=== PATIENT | female | born 1960 | race Caucasian/White ===

== ENCOUNTER 2018-12-03 05:07 | Inpatient (IN) ==
--- NOTE | 2018-11-12 13:42 | History & Physical Report ---
Date of Service November 12, 2018 Date of Surgery: 12-03-18 Assessment & Plan (1) Painful total knee replacement, left: discussed further care, Drea is approximately 12 years s/p left TKA, updated xrays showing no acute findings but showing some poly wear, bone scan from 2 years ago showing no loosening, discussed poly exchange and medial retinaculum repair, risks and benefits discussed in detail, she would like to proceed with left knee arthrotomy, medial retinaculum repair and poly exchange at [facility]. she would like to use HHPT upon discharge. History of Present Illness Chief Complaint: left knee pain Primary Care Provider: Martina Beck DO Ms Jefferson is a 58 year old female who complains of left knee pain, presents for pre-op evaluation prior to left knee arthrotomy, poly exchange and medial retinacular repair at [facility] on 12-03-18. She presents with pain on the left side. She states that the symptoms have been acute non-traumatic and has been present for several months. The symptoms occur constantly with intermittent worsening. Currently the patient states that the symptoms are moderate. The pain is described as aching and sharp. She rates her current pain as 4/10 and worst 8/10. The symptoms are aggravated by ascending stairs, daily activities, descending stairs, weight bearing and walking. Drea states that the symptoms are not relieved by NSAIDs. In addition to left knee pain the patient is also experiencing decreased mobility, joint pain and night pain. New Xrays obtained did not show any acute findings or loosening of implant. Prior NSAIDs include Aleve. she had previously undergone left TKA about 12 years ago. Allergies Allergy/AdvReac Type Severity Reaction Status Date / Time aspirin AdvReac Intermediate STOMACH Verified 11/03/18 08:13 IRRITATION acetaminophen [From Percocet] AdvReac Unknown LOSS OF Verified 11/03/18 08:13 APPETITE AND CRIES Home Medications Home Medications Medication Instructions Recorded Confirmed Type ascorbic acid (vitamin C) [Vitamin 500 mg PO DAILY 11/03/18 11/03/18 History C] cholecalciferol (vitamin D3) 500 unit PO DAILY 11/03/18 11/03/18 History [Vitamin D3] liothyronine 25 mcg PO QAM 11/03/18 11/03/18 History Past Med/Surg History Medical History Asthma "ACTIVITY INDUCED" Hiatal hernia History of high cholesterol History of osteoarthritis Hypothyroid Nausea and vomiting after administration of anesthetic agent Skipped heart beats PRIOR TO RTKA, SURGERY CX, DR TRINIDAD/NON STRESS - CLEARED FOR SURGERY Surgical History History of bilateral breast reduction surgery History of colonoscopy History of hysterectomy History of left knee surgery MULTIPLE (TOTAL KNEE SURGERIES BETWEEN RIGHT AND LEFT = 19) History of right knee surgery MULTIPLE History of total left knee replacement History of total right knee replacement Family History Father History of multiple myeloma Mother Hx of acute lymphoid leukemia Social History Preferred Language: Zimbabwean Communication Ability: Effective Server Required: No Beliefs That Will Affect Care: None Current Living Situation: Other Current Living Situation Comment: AND ADOPTED 5 YR OLD BOY Other Information That Helps Us Care for You: No Feels Safe at Home: Yes Smoking Status: Never smoker Hx Alcohol Use: No Hx Substance Use: No Review of Systems All systems reviewed & are unremarkable except as noted in HPI & below Constitutional: no fever, no chills and no sweats Respiratory: no cough and no dyspnea Cardiovascular: no chest pain, no dyspnea and no orthopnea Gastrointestinal: no abdominal pain, no nausea and no vomiting Musculoskeletal: as per Subjective / HPI Physical Exam Vital Signs (Past 24 Hours): Ht: 5ft 4 in Wt: 72.58 kg BP: 120/84 Pulse: 72 Constitutional: WD/WN, vitals as above no acute distress Respiratory: normal respiratory effort, lungs clear to auscultation Cardiovascular: RRR, no murmur, no edema Gastrointestinal (Abdomen): normal bowel sounds, soft, nontender, no hepatosplenomegaly Musculoskeletal: Left Knee Exam Ambulates with a limp, overall neutral lignment, there is no atrophy warmth or ecchymosis noted, mild effusion, maximum tenderness medial retinaculum. negative patellar Apprehension , no crepitation with motion, valgus stress Negative, Varus stress Negative, no Extensor lag, Pain with Active range of motion, also passive painful ROM, Range of motion 0/3/115. No pain with active/passive ROM of ankle. Lower Extremity Strength normal. Lower Extremity Neuro-vascular is normal Results & Data Diagnostic Findings left knee xray showing s/p left total knee replacement in anatomical alignment, poly wear noted from xrays several years ago, no acute findings, no loosening of the prosthesis, no fracture or loose bodies noted. Bone Scan from 2 years ago showing no signs of loosening or infection.
--- NOTE | 2018-11-14 12:37 | PAT Medication Instructions ---
Medication Instructions Date of Service November 14, 2018 Home Medications ascorbic acid (vitamin C) [Vitamin 500 mg PO DAILY cholecalciferol (vitamin D3) 500 unit PO DAILY liothyronine 25 mcg PO QAM DO NOT take the morning of surgery ascorbic acid (vitamin C) [Vitamin 500 mg PO DAILY cholecalciferol (vitamin D3) 500 unit PO DAILY Take morning of surgery With a small sip of water, OTHERWISE NOTHING TO EAT OR DRINK AFTER MIDNIGHT: liothyronine 25 mcg PO QAM Other Notes If you have any questions please call us at [phone] or [phone] or [phone] or [phone]
--- NOTE | 2018-11-14 14:08 | Anesthesiology Consultation ---
Date of Service November 14, 2018 Assessment & Plan (1) Encounter for pre-operative examination: Chart Review Chart Review: Acceptable Risk for Surgery (pending surgeon-ordered PCP preop evaluation scheduled 11/21 (Kiran)) and Patient seen in Pre Admission Testing Teaching & Discussion Pre-Anesthesia Teaching/Discussion Notes: Instructed NPO after midnight before surgery,except medications with 15 cc of water. Medication instructions pro vided according to the PAT guidelines. History Surgery Operation Date: 12/03/18 07:00 Proposed Procedures p Left Knee Polyethylene Exchange with Medial Retinacular Repair - Salbador Moreland DO Height/Weight Height: 5 ft 4 in Weight: 78.5 kg Allergies Allergy/AdvReac Type Severity Reaction Status Date / Time aspirin AdvReac Intermediate STOMACH Verified 11/03/18 08:13 IRRITATION acetaminophen [From Percocet] AdvReac Unknown LOSS OF Verified 11/03/18 08:13 APPETITE AND CRIES Medications Home Medications Medication Instructions Recorded Confirmed Last Taken ascorbic acid (vitamin C) [Vitamin 500 mg PO DAILY 11/03/18 11/03/18 Unknown C] cholecalciferol (vitamin D3) 500 unit PO DAILY 11/03/18 11/03/18 Unknown [Vitamin D3] liothyronine 25 mcg PO QAM 11/03/18 11/03/18 11/03/18 Past Medical History Medical History Asthma STABLE Hiatal hernia History of high cholesterol History of osteoarthritis Hypothyroid Past Family History Family History Father History of multiple myeloma Mother Hx of acute lymphoid leukemia Past Surgical History Surgical History History of bilateral breast reduction surgery History of colonoscopy History of hysterectomy History of left knee surgery MULTIPLE B/L History of right knee surgery MULTIPLE History of total left knee replacement History of total right knee replacement Past Anesthesia History No Hx of Anesthesia Complications (EXCEPT POST-OP NAUSEA) and No Family Hx of Anesthesia Complications History of PONV Yes (+ NAUSEA) Motion Sickness Screening History of Motion Sickness: No Social History Smoking Status: Never smoker Do You Dip or Chew Tobacco: No Hx Alcohol Use: No Hx Substance Use: No substance use type: does not use Exercise / Class Metabolic Activity III < 4 Walking/Shop/Light housework Review of Systems Patient denies chest pain, shortness of breath, cough, wheezing, palpitations. Physical Exam Vital Signs VITALS BP 123/76 P 70 TEMP 98.1 SP02 93%RA RESP 16 PHYSICAL Full neck and c-spine range of motion. Full TMJ range of motion. TMD 2.5 finger breaths Mallampati Score 2 Dentition: full dentures on upper Lungs: clear throughout to auscultation Cardiac: regular rate and rhythm, no murmurs noted Spine: normal Carotid arteries: negative bruit Extremities: no edema Testing Electrocardiogram Date: 11/14/18 NSR at 61bpm. NS ST/TWA. Chest X-Ray Date: 11/14/18 Findings: + NAD the heart remains the upper limits of normal in size. There is mild aortic tortuosity/ectasia. Stress Test Date: 11/07/12 Type: DSE DSE "normal" without inducible ischemia. Mild equivocal EKG noted however in light of appropriate augmentation of the LV, "it is unlikely that the EKG is advertising representative of ischemia." LVEF 55-59%. Grade I DD. No significant valvular disease. 103% MPHR. Laboratory Results 11/14/18 14:15 11/14/18 14:15 Blood Type O Negative 11/14/18 14:15 Antibody Screen NEGATIVE 11/14/18 14:15 PT 10.2 Seconds (9.0-12.0) 11/14/18 14:15 INR 1.0 (0.9-1.1) 11/14/18 14:15 APTT 24.8 Seconds (21.0-31.0) 11/14/18 14:15 Hemoglobin A1c 6.0 % (4.5-5.6) H 11/14/18 14:15 Urine Color Yellow 11/14/18 14:15 Urine Appearance Clear (Clear) 11/14/18 14:15 Urine pH 5.0 (4.5-7.5) 11/14/18 14:15 Ur Specific Howell 1.029 (1.000-1.030) 11/14/18 14:15 Urine Protein Negative (Negative) 11/14/18 14:15 Urine Glucose (UA) Negative (Negative) 11/14/18 14:15 Urine Ketones Negative (Negative) 11/14/18 14:15 Urine Nitrite Negative (Negative) 11/14/18 14:15 Ur Leukocyte Esterase Negative (Negative) 11/14/18 14:15 Urine WBC (Auto) 1-5 /hpf (0-5) 11/14/18 14:15 Urine RBC (Auto) 0-4 /hpf (0-4) 11/14/18 14:15 U Hyaline Cast (Auto) 1-5 /lpf (0-5) 11/14/18 14:15 U Epithel Cells (Auto) >30 /lpf (0-5) H 11/14/18 14:15 Urine Bacteria (Auto) 1+ (Negative) H 11/14/18 14:15 11/14/18 14:15 Urine Culture - Final Urine,Clean Catch Klebsiella pneumoniae Gardnerella-like bacilli Surgeon made aware of abnormal urine culture.
--- NOTE | 2018-11-14 14:52 | XRay Report ---
XR chest Pre-admission PA/Lat CLINICAL HISTORY: Preoperative chest COMPARISON STUDY: September 2012 FINDINGS: The heart remains the upper limits of normal in size. There is mild aortic tortuosity/ectas ia. There is no failure. There is no focal pulmonary consolidation. There are no pleural effusions.[ IMPRESSION: No active disease in the chest. Electronically signed by: Cam Aj M.D. 11/14/2018 2:50 PM
[2018-11-14 14:54] LABS: Basophils # (auto) 0.01 K/uL (0-0.2); Basophils % (auto) 0.1 %; Hematocrit (blood only) 39.5 % (37-47); Hemoglobin 12.8 g/dL (12.0-16.0); Immature Granulocytes # (auto) 0.23 K/uL (0.00-0.02); Immature Granulocytes % (auto) 2.2 %; Lymphocytes # (auto) 1.61 K/uL (1.2-3.4); Lymphocytes % (auto) 15.6 %; Mean Corpuscular Hgb Conc 32.4 g/dL (32-36); Mean Corpuscular Volume 91.2 fL (80-100); Mean Platelet Volume 9.3 fL (7.4-10.4); Monocytes # (auto) 0.51 K/uL (0.11-0.59); Monocytes % (auto) 4.9 %; Neutrophils # (auto) 7.95 K/uL (1.4-6.5); Neutrophils % (auto) 77.2 %; Platelet Count 324 K/uL (130-400); RDW Coefficient of Variation 13.2 % (11.5-14.5); RDW Standard Deviation 43.9 fL (36.4-46.3); Red Blood Count 4.33 M/uL (4.2-5.4); White Blood Count 10.31 K/uL (4.8-10.8)
[2018-11-14 15:00] LABS: Appearance Urine Clear (Clear); Bacteria Urine Automated 1+ (Negative); Bilirubin Urine Negative (Negative); Blood Urine Trace (Negative); Color Urine Yellow; Epithelial Cell Urine Auto >30 /lpf (0-5); Glucose Urine UA Negative (Negative); Ketones Urine Negative (Negative); Leukocyte Esterase Urine Negative (Negative); Nitrite Urine Negative (Negative); Protein Urine Negative (Negative); RBC Urine Automated 0-4 /hpf (0-4); Specific Gravity Urine 1.029 (1.000-1.030); Urobilinogen Urine Negative (Negative)
[2018-11-14 15:08] LABS: Partial Thromboplastin Ratio 0.9; Partial Thromboplastin Time 24.8 Seconds (21.0-31.0); Prothrombin Time 10.2 Seconds (9.0-12.0)
[2018-11-14 15:56] LABS: Albumin Level 3.3 gm/dl (3.4-5.0); BUN Creatinine Ratio 23.7 (10-20); Calcium 9.1 mg/dl (8.5-10.1); Est GFR (African American) 82.2; Est GFR (Non-African American) 70.9; Potassium 3.5 mmol/L (3.5-5.1)
[2018-11-15 06:26] LABS: Estimated Average Glucose 126 mg/dl
--- OUTSIDE RECORDS SUMMARY | 2018-12-03 05:10 | External Medical Summary | Continuity of Care Document ---
:1960 Author Name Naye Arroyo Address Unavailable Unavailable , Care Team Providers Name Role Phone Juan Carlos GUERRIER M.D., P. Unavailable [email or web address] PCP, UNKNOWN Unavailable Unavailable Problems Active medical history not documented Allergies and Adverse Reactions Allergy history not documented Medications Medications not documented Procedures Procedures not documented Immunizations Immunizations not documented Plan of Treatment Planned Observations Planned Goals not documented Results No Known Results Results not documented Encounters Appointment; Ale Rangel III, M.D. 10-Sep-2013 13:30 Encounter Diagnosis: Problem not documented
[2018-12-03] MEDS ORDERED: CEFAZOLIN 1000MG 1,000 MG/7.5 ML SYR IV SCH (06:00)
[2018-12-03] MEDS ORDERED: ACETAMINOPHEN 500 MG TAB PO SCH (06:00)
[2018-12-03] MEDS ORDERED: CeleBREX 200 MG CAP PO SCH (06:00)
[2018-12-03] MEDS ORDERED: dexAMETHasone 4 MG TAB PO SCH (06:00)
[2018-12-03] MEDS ORDERED: ROPIVACAINE 0.5% HCL/PF 150 MG, BUPIVACAINE 0.5% MPF 30 ML, EPINEPHrine 30MG/30ML (OR U... INFIL SCH (06:00)
[2018-12-03] MEDS ORDERED: GABAPENTIN 300 MG x 2 PO SCH (06:00)
[2018-12-03] MEDS ORDERED: METOCLOPRAMIDE HCL 10 MG TABLET PO SCH (06:00)
[2018-12-03] MEDS ORDERED: LR 500ML BOLUS, THEN 15ML/HR IV SCH (06:00)
[2018-12-03] MEDS ORDERED: TRANEXAMIC ACID 1,000 MG **IV Pre-op IV SCH (06:00)
[2018-12-03] MEDS ORDERED: ROPIVACAINE 0.5% 5 MG/ML 30 ML VIAL ONE (06:23)
[2018-12-03] MEDS ORDERED: BUPIVACAINE 0.5 % 5 MG/1 ML PF 10ML VIAL ONE (06:23)
[2018-12-03] MEDS ORDERED: MIDAZOLAM HCL 1 MG/ML 2ML VIAL ONE (06:28)
[2018-12-03] MEDS ORDERED: fentaNYL citrate 100 MCG/2 ML VIAL ONE (06:28)
[2018-12-03] MEDS ORDERED: TRANEXAMIC ACID 1,000 MG **IV Intra-op IV SCH (06:30)
--- NOTE | 2018-12-03 07:06 | History & Physical Bridge Note ---
Date of Service December 03, 2018 History & Physical Bridge Note I have examined the patient, reviewed the History & Physical and in the interval since the performance of the History & Physical I have noted the following changes of clinical significance: no changes noted
[2018-12-03] MEDS ORDERED: ORTHO JOINT ANESTHETIC ONE (07:21)
[2018-12-03] MEDS ORDERED: BACITRACIN INJ 50,000 UNIT VIAL ONE (07:21)
[2018-12-03] MEDS ORDERED: POVIDONE-IODINE OP SOLN 30 ML BTL ONE (07:21)
[2018-12-03] MEDS ORDERED: PHENYLEPHRINE 100MCG/ML 5ML SYR IV PRN (07:28)
[2018-12-03] MEDS ORDERED: HYDROmorphone INJ 1 MG/ML SYRINGE IV PRN (07:28)
[2018-12-03] MEDS ORDERED: ePHEDrine sulfate 50 MG/ML AMP IV PRN (07:28)
[2018-12-03] MEDS ORDERED: ATROPINE SULFATE 0.1 MG/ML 10ML SYR IV PRN (07:28)
[2018-12-03] MEDS ORDERED: ONDANSETRON INJ 2 MG/ML 2 ML VIAL IV PRN ×2 (07:28→09:59)
--- NOTE | 2018-12-03 08:28 | Operative Report ---
Post Operative Report Pre & Post Diagnosis Operation Date: 12/03/18 07:30 <No data on this case meets the specified criteria> Left knee ligamentous laxity status post total knee arthroplasty Left knee ligamentous laxity status post total knee arthroplasty Procedure Poly-change left total knee arthroplasty upsized to an 11 mm x 3 polyethylene triathlon tibial bearing insert Operation Date: 12/03/18 07:30 <No data on this case meets the specified criteria> Surgeon Salbador Moreland DO Bacteriologist Soil Iam JORDAN Estimated Blood Loss 5 Findings Consistent with Post-Op Diagnosis Patient presents with complaints of pain and instability of her left knee from 11 years prior had undergone total knee arthroplasty was doing well until the last year had a couple falls and presents with ligamentous laxity both medial lateral and poly-wear presents for ligamentous exam as well as a poly-change of size. Patient failed attempts at the conservative management including physical therapy anti-inflammatories relative rest bracing Specimens Removed probably Drains None Complications none Disposition Accompanied Patient To Recovery: No Disposition: Recovery Room Indications Patient presents with ongoing planes of pain and instability about her left knee after having undergone total knee arthroplasty 11 years prior she presents with 2 months laxity with medial lateral collateral ligaments for having had multiple falls who presents with the above findings noted no response to bracing physical therapy anti-inflammatories relative rest activity modification presents for poly-change Description of Procedure After proper prepping draping the left lower extremity incision made through the medial anterior incision medial parapatellar incision was made the sections carried down to the region of the implant there is no evidence of infection or synovitis noted of the patellar tracking was noted to be excellent subsequently the medial lateral ligamentous complexes were noted to have laxity the poly-was removed it was trialed with an 11 x 3 triathlon next 3 tibial bearing insert gave excellent stability throughout full range of motion including flexion- extension and mid flexion subsequently was irrigated with copious muscle sterile saline solution femoral component tibial component to be well cemented well adhered well fixed no loosening was noted patellar component was evaluated no loosening was noted subsequently the tibial poly-was changed the wound was irrigated with copious muscle sterile saline solution the medial retinacular incision was repaired with one #1 Vicryl subcu was closed with 2-0 Vicryl skin was closed with skin clips sterile compressive dressings placed patient was taken recovery in stable condition Iam Brunermer PA was necessary for the case was necessary for prepping draping retraction wound closure of the fascia subcu and skin was necessary for the case I attest to the content of the Intraoperative Record and any orders documented therein. Any exceptions are noted below.
--- NOTE | 2018-12-03 09:33 | Anesthesiology Progress Note ---
Date of Service December 03, 2018 Anesthesia Post Procedure Vital Signs Vital Signs: Temp Pulse Resp BP Pulse Ox 12/03/18 09:03 36.7 C 66 18 111/62 97 12/03/18 05:37 36.9 C 64 18 137/79 98 Pain Intensity Left Knee: Pain Intensity: 0 Transfer of Care Handoff Completed per policy Notes Mental Status: alert / awake / arousable Patient Amnestic to Procedure: Yes Nausea / Vomiting: adequately controlled Pain: adequately controlled Airway Patency, RR, SpO2: stable & adequate BP & HR: stable & adequate Hydration State: stable & adequate Neuraxial Anesthesia: was administered and sensory block is resolving Anesthetic Complications: no major complications apparent
--- NOTE | 2018-12-03 09:51 | XRay Report ---
LEFT KNEE 2 VIEWS History: Left total knee arthroplasty. Degenerative arthritis. Postop. FINDINGS: The patient is status post a left total knee arthroplasty. The hardware is intact. No fract ure or dislocation. Skin joe are in place. IMPRESSION: Left total knee arthroplasty. No evidence for hardware complication. Electronically signed by: Juan Coe M.D. 12/03/2018 9:49 AM
[2018-12-03] MEDS ORDERED: MAGNESIUM HYDROXIDE SUSP 30 ML UDC PO PRN (09:59)
[2018-12-03] MEDS ORDERED: NALOXONE HCL 0.4 MG/1 ML VIAL/CARP IV PRN (09:59)
[2018-12-03] MEDS ORDERED: BISACODYL 10 MG SUPP PR PRN (09:59)
[2018-12-03] MEDS ORDERED: HYDROmorphone INJ 0.5 MG/0.5 ML SYR IV PRN (09:59)
[2018-12-03] MEDS: SODIUM CHLORIDE 0.9% 1000ML 1,000 ML IV SCH ×2 (10:38→21:24)
[2018-12-03] MEDS: CEFAZOLIN 1000MG 1,000 MG/7.5 ML SYR IV SCH ×2 (17:05→23:07)
[2018-12-03] MEDS: OXYCODONE HCL IR 5 MG TAB (IMMEDIATE RELEASE) PO PRN (18:50)
[2018-12-03] MEDS ORDERED: SENNA 8.6 MG TAB PO SCH (21:00)
[2018-12-03] MEDS: DOCUSATE SODIUM 100 MG CAP PO SCH (21:25)
[2018-12-04] MEDS: SODIUM CHLORIDE 0.9% 1000ML 1,000 ML IV SCH (04:58)
[2018-12-04] MEDS: OXYCODONE HCL IR 5 MG TAB (IMMEDIATE RELEASE) PO PRN (05:02)
[2018-12-04] MEDS: DOCUSATE SODIUM 100 MG CAP PO SCH (07:00)
--- NOTE | 2018-12-04 07:33 | Orthopedic Progress Note ---
Date of Service December 04, 2018 Assessment & Plan (1) Polyethylene wear of left knee prosthesis: POD #1 s/p Poly-change left total knee arthroplasty upsized to an 11 mm x 3 polyethylene triathlon tibial bearing insert pt/ot dvt proph with NARAYAN/SCD/ASA plan for d/c home with HHPT after PT today Subjective POD #1 s/p Poly-change left total knee arthroplasty upsized to an 11 mm x 3 polyethylene triathlon tibial bearing insert denies fever/chills/sweats denies CP/SOB pain well controlled Physical Exam Physical Exam: Vital Signs Temp 36.6 C 12/04/18 03:05 Pulse 70 12/04/18 03:05 Resp 14 12/04/18 03:05 BP 129/66 12/04/18 03:05 Pulse Ox 96 12/04/18 03:05 Intake & Output 12/03/18 12/04/18 12/04/18 18:59 06:59 18:59 Intake Total 1860 / 4116.667 2256.667 / 4116.66 7 Output Total 505 / 955 450 / 955 Balance 1355 / 3161.667 1806.667 / 3161.66 7 Weight 76.75 kg Intake: IV 1020 / 2776.667 1756.667 / 2776.66 7 Lr 1,000 ml @ 15 mls/hr IV . 800 / 800 Q24H SUNG Rx#:[id number] Nss 1000ML 1,0 00 ml @ 100 mls/ 1756.667 / 1756.66 7 hr IV .Q10H SC H Rx#:[id number] Cyklokapron 1, 000 mg In Sodium 220 / 220 Chloride 100 m l @ 660 mls/hr IV 0630 SUNG Rx#:[id number] IV Perioperative 600 / 600 Oral 240 / 740 500 / 740 Output: Urine 500 / 950 450 / 950 Estimated Blood Loss 5 / 5 Other: # Unmeasured Voi ds 1 Constitutional: WD/WN, vitals as above + not well nourished and no acute distress Musculoskeletal: left knee: NVDI, calf SNT, negative peri sign. DP palpable, able to wiggle toes/ankle movement without difficulty. her dressing is clean and dry Vital Signs Temp 36.6 C 12/04/18 03:05 Pulse 70 12/04/18 03:05 Resp 14 12/04/18 03:05 BP 129/66 12/04/18 03:05 Pulse Ox 96 12/04/18 03:05 Intake & Output 12/03/18 12/04/18 12/04/18 18:59 06:59 18:59 Intake Total 1860 / 4116.667 2256.667 / 4116.66 7 Output Total 505 / 955 450 / 955 Balance 1355 / 3161.667 1806.667 / 3161.66 7 Weight 76.75 kg Intake: IV 1020 / 2776.667 1756.667 / 2776.66 7 Lr 1,000 ml @ 15 mls/hr IV . 800 / 800 Q24H SUNG Rx#:[id number] Nss 1000ML 1,0 00 ml @ 100 mls/ 1756.667 / 1756.66 7 hr IV .Q10H SC H Rx#:[id number] Cyklokapron 1, 000 mg In Sodium 220 / 220 Chloride 100 m l @ 660 mls/hr IV 0630 SUNG Rx#:[id number] IV Perioperative 600 / 600 Oral 240 / 740 500 / 740 Output: Urine 500 / 950 450 / 950 Estimated Blood Loss 5 / 5 Other: # Unmeasured Voi ds 1 Results & Data Vital Signs (Past 12 Hours) Vital Signs Temp Pulse Resp BP Pulse Ox 12/04/18 03:05 36.6 C 70 14 129/66 96 12/03/18 23:27 36.6 C 70 14 114/66 98 Laboratory Results labs pending Diagnostic Findings LEFT KNEE 2 VIEWS History: Left total knee arthroplasty. Degenerative arthritis. Postop. FINDINGS: The patient is status post a left total knee arthroplasty. The hardware is intact. No fracture or dislocation. Skin joe are in place. IMPRESSION: Left total knee arthroplasty. No evidence for hardware complication.
[2018-12-04 08:13] LABS: Hemoglobin 11.2 g/dL (12.0-16.0); Mean Corpuscular Hgb Conc 32.9 g/dL (32-36); Mean Corpuscular Volume 90.2 fL (80-100); Mean Platelet Volume 9.2 fL (7.4-10.4); Platelet Count 275 K/uL (130-400); RDW Standard Deviation 43.2 fL (36.4-46.3); Red Blood Count 3.77 M/uL (4.2-5.4); White Blood Count 12.58 K/uL (4.8-10.8)
[2018-12-04 08:48] LABS: BUN Creatinine Ratio 23.4 (10-20); Calcium 8.4 mg/dl (8.5-10.1); Creatinine Clr Calc Pharmacy 89.3 ml/min; Est GFR (Non-African American) 95.7; Potassium 3.9 mmol/L (3.5-5.1)
[2018-12-04] MEDS ORDERED: LIOTHYRONINE SODIUM 25 MCG TAB PO SCH (09:00)
[2018-12-04] MEDS ORDERED: RIVAROXABAN 10 MG TABLET PO SCH (09:00)
[2018-12-04] MEDS ORDERED: CHOLECALCIFEROL 1,000 UNITS TAB PO SCH (09:00)
[2018-12-04] MEDS ORDERED: MULTIVITAMIN TAB PO SCH (09:00)
--- NOTE | 2018-12-10 01:41 | Discharge Summary ---
DISCHARGE DIAGNOSIS: Left knee ligamentous laxity, status post total knee arthroplasty. SECONDARY DIAGNOSES: Asthma, hiatal hernia, hypercholesterolemia, osteoarthritis, hypothyroidism, history of skipped heartbeats in the past, nausea and vomiting post-anesthetic agents. CONSULTS: None. COMPLICATIONS: None. PROCEDURES: Polyethylene bearing change, left knee, by Dr. Moreland on 12/03/2018. BRIEF HISTORY: As dictated in history and physical. HOSPITAL SUMMARY: The patient was admitted on the above date and had the above surgery performed, which she tolerated well. On her first postoperative day, she denies fever or chills. No shortness of breath or chest pain and pain was well controlled. Vital signs were stable. She was afebrile. Neurovascular intact. Calves were soft, nontender. Dressings were clean, dry and intact. Toes were mobile. She did start on physical therapy protocol and continued on DVT prophylaxis and pain management and was progressing well with her PT, remaining stable and it was felt that she could be discharged to home. DISCHARGE INSTRUCTIONS: The patient was discharged home on 12/04/2018. DIET: Regular. ACTIVITY: Weightbearing as tolerated on left lower extremity with walker. Follow TK instruction sheets and special care instructions as noted. MEDICATIONS: Cefadroxil 500 mg p.o. b.i.d., Colace 100 mg p.o. b.i.d., oxycodone 5-10 mg p.o. q. 6 hours p.r.n., Xarelto 10 mg p.o. daily. Resume home meds as listed and follow up with Dr. Moreland in 2 weeks from the day of surgery. The patient to call for appointment if one has not made you. SANDRA
== END 2018-12-04 11:31 | disposition home or self-care (01) | DRG 489 ==
LOC: ASU 05:07 → 3E 09:11

== ENCOUNTER 2022-10-17 08:47 | Observation (INO) ==
--- NOTE | 2022-09-25 08:54 | PAT Medication Instructions ---
Medication Instructions Date of Service September 25, 2022 Home Medications cholecalciferol (vitamin D3) 25 mcg (1,000 unit) tablet (Vitamin D3) 500 unit PO QAM liothyronine 25 mcg tablet 25 mcg PO QAM DO NOT take the morning of surgery cholecalciferol (vitamin D3) 25 mcg (1,000 unit) tablet (Vitamin D3) 500 unit PO QAM Take morning of surgery With a small sip of water, OTHERWISE NOTHING TO EAT OR DRINK AFTER MIDNIGHT: liothyronine 25 mcg tablet 25 mcg PO QAM Other Notes If you have any questions please call us at [phone] or [phone] or [phone] or [phone]
--- NOTE | 2022-09-27 10:18 | Anesthesiology Consultation ---
Date of Service September 27, 2022 Assessment & Plan (1) Encounter for pre-operative examination: - COVID screening: Per assessment on 09/27: No known COVID-19 positive contacts or current COVID-19 related symptoms. Travel screen negative. Patient vaccinated. At surgeon discretion if preop Covid testing being done. - S/P Left knee poly exchange with medial retinacular repair (12/03/18): SAB + PNB at [facility]. No issues noted per post-op anesthesia progress note. - Outpatient joint assessment: Pt currently scheduled for inpatient pathway. Knee revisions typically not done through outpatient joint pathway so patient not appropriate for outpatient joint pathway unless surgeon specifically feels this case can be done through outpatient joint pathway (if surgeon feels this case in particular is appropriate for outpatient joint pathway, then patient would be acceptable). Chart Review Chart Review: Acceptable Risk for Surgery and Patient seen in Pre Admission Testing Teaching & Discussion Pre-Anesthesia Teaching/Discussion Notes: Instructed NPO after midnight before surgery,except medications with 15 cc of water. Medication instructions provided according to the PAT guidelines. History Surgery Operation Date: 10/17/22 09:50 Proposed Procedures p Right Knee Poly Exchange - Salbador Moreland DO Height/Weight Height: 5 ft 3 in Weight: 74.7 kg Allergies Allergy/AdvReac Type Severity Reaction Status Date / Time aspirin AdvReac Intermediate Stomach Verified 09/25/22 15:37 irritation acetaminophen [From Percocet] AdvReac Unknown Loss of Verified 09/25/22 15:37 appetite, crying Medications Home Medications Medication Instructions Recorded Confirmed Last Taken cholecalciferol (vitamin D3) 25 500 unit PO QAM 11/03/18 09/24/22 11/26/18 mcg (1,000 unit) tablet (Vitamin D3) liothyronine 25 mcg tablet 25 mcg PO QAM 11/03/18 09/24/22 12/02/18 07:00 Past Medical History Medical History Asthma Stable Hiatal hernia History of high cholesterol History of osteoarthritis Hypothyroid Leg length discrepancy Right side shorted- wears lift Exercise / Class Metabolic Activity II 4-5 Yardwork/Stairs/Walk up hill Past Family History Family History Father History of multiple myeloma Mother Hx of acute lymphoid leukemia Other No family history of adverse response to anesthesia Past Surgical History Surgical History History of arthroscopy of left knee multiple History of arthroscopy of right knee multiple History of bilateral breast reduction surgery History of colonoscopy History of hip surgery Right History of hysterectomy History of revision of total knee arthroplasty Left knee poly exchange with medial retinacular repair (12/03/18): SAB + PNB at [facility]. No issues noted per post-op anesthesia progress note. History of total left knee replacement History of total right knee replacement PONV (postoperative nausea and vomiting) Past Anesthesia History No Hx of Anesthesia Complications (except PONV) and No Family Hx of Anesthesia Complications History of PONV No Hx of Motion Sickness and History of PONV Social History Smoking Status: Never smoker Do You Dip or Chew Tobacco: No Hx Alcohol Use: No Hx Substance Use: No substance use type: does not use Review of Systems Patient denies chest pain, shortness of breath, dyspnea on exertion, fever, chills, cough, wheezing, palpitations. Physical Exam Vital Signs VITALS BP 171/94 P 65 TEMP 138/85 SP02 98%RA RESP 16 PHYSICAL Full cervical extension range of motion. Full TMJ range of motion. TMD 3 finger breaths Mallampati Score 2 Dentition: upper full denture Lungs: clear throughout to auscultation Cardiac: regular rate and rhythm, no murmurs noted Spine: normal Carotid arteries: negative bruit Extremities: no edema Lab Results Anesthesia Preop Results Results Anesthesia Widget: WBC 5.58 K/ul (4.8-10.8) 09/27/22 Hgb 13.9 g/dl (12.0-16.0) 09/27/22 Hct 42.2 % (37.0-47.0) 09/27/22 Plt 329 K/uL (130-400) 09/27/22 Na 139 mmol/L (136-145) 09/27/22 K 4.1 mmol/L (3.5-5.1) 09/27/22 Cl 105 mmol/L (98-107) 09/27/22 CO2 30 mmol/L (21-32) 09/27/22 BUN 15 mg/dl (6-23) 09/27/22 Creat 0.77 mg/dl (0.6-1.2) 09/27/22 Glucose Level 90 mg/dl (70-99(Fasting)) 09/27/22 PT 10.3 Seconds (9.0-12.0) 09/27/22 PTT 28.4 Seconds (21.0-31.0) 09/27/22 INR 1.0 (0.9-1.1) 09/27/22 HA1c 5.7 % (4.5-5.6) H 09/27/22 Urine Color Yellow 09/27/22 Urine Appearance Clear (Clear) 09/27/22 Urine pH 5.5 (4.5-7.5) 09/27/22 Urine Specific [place] 1.012 (1.000-1.030) 09/27/22 Urine Protein Negative (Negative) 09/27/22 Urine Glucose (UA) Negative (Negative) 09/27/22 Urine Ketones Negative (Negative) 09/27/22 Urine Blood Trace (Negative) H 09/27/22 Urine Nitrite Negative (Negative) 09/27/22 Urine Bilirubin Negative (Negative) 09/27/22 Urine Urobilinogen Negative (Negative) 09/27/22 Urine Leukocyte Esterase Trace (Negative) H 09/27/22 Urine WBC (Auto) 1-5 /hpf (0-5) 09/27/22 Urine RBC (Auto) 0-4 /hpf (0-4) 09/27/22 Urine Hyaline Casts (Auto) 1-5 /lpf (0-5) 09/27/22 Urine Epithelial Cells (Auto) >30 /lpf (0-5) H 09/27/22 Urine Bacteria (Auto) 1+ (Negative) H 09/27/22 Blood Type O Negative 09/27/22 Antibody Screen NEGATIVE 09/27/22 Testing Laboratory Results Surgeon's office made aware of abnormal UA* Electrocardiogram Date: 09/27/22 SB at 52bpm. NS ST/TWA. No significant change compared to 11/14/18 per end lathe operator comparison. Chest X-Ray Date: 09/27/22 Findings: + NAD COVID-19 Risk Screen Screening Information COVID-19 Screen Date: 09/27/22 Exposure 21 Days Family/Household +COVID Last 21 Days: No Exposure 10 Days Any COVID Exposure Last 10 Days: No Symptoms Last 10 Days Experienced COVID Sx Last 10 Days: No + COVID 0-90 Days COVID + in Last 0-90 Days: No
--- NOTE | 2022-10-02 08:17 | History & Physical Report ---
Date of Service October 02, 2022 date of surgery: 10/17/22 Procedure: Right Knee Poly Exchange Surgeon: Salbador Moreland Assessment & Plan (1) Painful total knee replacement, right: Plan: discussed further care, Drea is approximately 10 years s/p Right TKA, updated xrays showing no acute findings or signs of loosening. bone scan from showing no loosening, discussed poly exchange. risks and benefits discussed in detail, she would like to proceed with right knee arthrotomy and poly exchange at [facility]. she would like to use HHPT upon discharge. The risks and benefits have been discussed including, but not limited to, risk of infection, nerve injury, stiffness, loss of motion, failure to improve, etc. Reasonable outcomes and options of treatment were discussed. An explanation of appropriate alternatives to the procedure that may be advantageous were di scussed and their risks and benefits, as well as the risks and benefits of not proceeding with treatment. I offered to answer any additional inquiries concerning the treatment involved. All the patient's questions were answered. The patient is agreeable, understanding of the treatment plan and alternatives, and wishes to proceed with the treatment plan. History of Present Illness Chief Complaint: right knee pain Primary Care Provider: Martina Beck DO Drea is a pleasant 62-year-old female who presented for preop evaluation prior to right knee poly exchange. 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 Initially she did well after the manipulation but then began having pain. She did have a bone scan done a couple of years ago which did not show any signs of loosening or infection. On examination she does have some knee flexion laxity noted. After discussion with Dr. Moreland, she like to proceed with surgical invention. Plan will be right knee arthrotomy with poly exchange Allergies Allergy/AdvReac Type Severity Reaction Status Date / Time aspirin AdvReac Intermediate Stomach Verified 09/25/22 15:37 irritation acetaminophen [From Percocet] AdvReac Unknown Loss of Verified 09/25/22 15:37 appetite, crying Home Medications Medication Instructions Recorded Confirmed Type cholecalciferol (vitamin D3) 25 500 unit PO QAM 11/03/18 09/24/22 History mcg (1,000 unit) tablet (Vitamin D3) liothyronine 25 mcg tablet 25 mcg PO QAM 11/03/18 09/24/22 History Past Med/Surg History Medical History Asthma Stable Hiatal hernia History of high cholesterol History of osteoarthritis Hypothyroid Leg length discrepancy Right side shorted- wears lift Surgical History History of arthroscopy of left knee multiple History of arthroscopy of right knee multiple History of bilateral breast reduction surgery History of colonoscopy History of hip surgery Right History of hysterectomy History of revision of total knee arthroplasty Left knee poly exchange with medial retinacular repair (12/03/18): SAB + PNB at [facility]. No issues noted per post-op anesthesia progress note. History of total left knee replacement History of total right knee replacement PONV (postoperative nausea and vomiting) Family History Father History of multiple myeloma Mother Hx of acute lymphoid leukemia Other No family history of adverse response to anesthesia Social History Smoking Status: Never smoker Second Hand Exposure: No; Hx Alcohol Use: No Hx Substance Use: No Preferred Language: German Communication Ability: Effective Paste Mixer Liquid Required: No Beliefs That Will Affect Care: None marital status: Current Living Situation: Other Current Living Situation Comment: AND ADOPTED SON Feels Safe at Home: Yes Assistive Devices: Glasses Review of Systems Review of Systems: All systems reviewed & are unremarkable except as noted in HPI & below Constitutional: no fever, no chills and no sweats Respiratory: no cough and no dyspnea Cardiovascular: no chest pain, no dyspnea and no orthopnea Gastrointestinal: no abdominal pain, no nausea and no vomiting Musculoskeletal: as per Subjective / HPI Physical Exam Physical Exam: HT: 5ft 3in WT: 74.7kg Constitutional: WD/WN, vitals as above no acute distress Respiratory: normal respiratory effort, lungs clear to auscultation no re spiratory distress, no labored breathing and does not use accessory muscles Cardiovascular: RRR, no murmur, no edema Gastrointestinal (Abdomen): normal bowel sounds, soft, nontender, no hepatosplenomegaly Musculoskeletal: Right Knee Exam Ambulates with a limp, overall neutral alignment, there is no atrophy warmth or ecchymosis noted, mild effusion, maximum tenderness medial retinaculum. positive patellar Apprehension , no crepitation with motion, no Extensor lag, Pain with Active range of motion, also passive painful ROM, Range of motion 0/3/110. No pain with active/passive ROM of ankle. Lower Extremity Strength normal. Lower Extremity Neuro-vascular is normal Results & Data Results & Data ([facility]) Diagnostic Findings Radiographs reveal a cemented total knee replacement arthroplasty in acceptable position and alignment. No evidence of loosening or loss of fixation is noted. The patella is tracking well. IM keenan noted femur extending just proximal to the implant.
[~2022-10-17 08:47] MED LIST: BUPIVACAINE 0.5 % 5 MG/1 ML PF 10ML VIAL ONE; LR 500ML BOLUS, THEN 15ML/HR IV SCH; ROPIVACAINE 0.5% 5 MG/ML 30 ML VIAL ONE; ROPIVACAINE 0.5% HCL/PF 150 MG, BUPIVACAINE 0.75% MPF 20 ML, EPINEPHrine 30MG/30ML (OR ... INSTIL SCH
--- NOTE | 2022-10-17 10:30 | History & Physical Bridge Note ---
Date of Service October 17, 2022 History & Physical Bridge Note I have examined the patient, reviewed the History & Physical and in the interval since the performance of the History & Physical I have noted the following changes of clinical significance: no changes noted
[2022-10-17] MEDS ORDERED: ceFAZolin 2,000 MG/15 ML IV PUSH IV ONE (10:38)
[2022-10-17] MEDS ORDERED: MIDAZOLAM HCL 1 MG/ML 2ML VIAL ONE (11:38)
[2022-10-17] MEDS ORDERED: PROPOFOL IV EMULSION 10 MG/ML 20 ML VIAL IV ONE ×3 (11:38→14:09)
[2022-10-17] MEDS ORDERED: fentaNYL citrate PF 100 MCG/2 ML VIAL ONE (12:26)
[2022-10-17] MEDS ORDERED: ORTHO JOINT ANESTHETIC ONE (12:31)
[2022-10-17] MEDS ORDERED: HYDROmorphone INJ 2 MG/ML SYR/VIAL IV PRN (12:35)
[2022-10-17] MEDS ORDERED: ONDANSETRON INJ 2 MG/ML 2 ML VIAL IV PRN ×2 (12:35→15:31)
[2022-10-17] MEDS ORDERED: fentaNYL citrate PF 100 MCG/2 ML VIAL IV PRN (12:35)
[2022-10-17] MEDS ORDERED: ATROPINE SULFATE 0.1 MG/ML 10ML SYR IV PRN (12:35)
[2022-10-17] MEDS ORDERED: ePHEDrine sulfate 50 MG/ML AMP IV PRN (12:35)
[2022-10-17] MEDS ORDERED: KETOROLAC 30 MG/ML VIAL ONE (14:10)
--- NOTE | 2022-10-17 14:11 | Operative Report ---
Post Operative Report Pre & Post Diagnosis Operation Date: 10/17/22 11:55 Pre-Op Diagnosis: Right Knee Pain, Retained Hardware Post-Op Diagnosis: Right Knee Pain, Retained Hardware I identified the patient and participated in the time-out.: Yes Procedure Operation Date: 10/17/22 11:55 Actual Procedures p Right Knee Poly Exchange(Right) to size 13 mm thickness journey 2 poly- Salbador Moreland DO Surgeon Salbador Moreland DO Manager [employer] JULIAN Bustos Estimated Blood Loss 5 Findings Consistent with Post-Op Diagnosis Patient presents with pain instability right knee 10 years status post total knee arthroplasty with laxity medial lateral collateral ligaments and mechanical pain no evidence of loosening of components are noted Specimens Tibial poly- Drains None Anesthesia Type MAC Spinal Regional Complications none Disposition Accompanied Patient To Recovery: No Disposition: Recovery Room Indications Patient presents with pain instability of the right knee after having had poly wear she presents nonresponsive to physical therapy nonresponsive to bracing unresponsive to rest having continued complaints of pain presents with a medial lateral collateral ligament stability in both flexion extension mid flexion Description of Procedure After initiation of regional anesthesia the right lower extremity socially prepped draped you sterile fashion for surgery this type utilize #10 blade incision made in the region of the anterior curvilinear incision which was previously made from patient's previous surgeries dissection carried down through subtenons tissues the medial parapatellar incision was made the scar involving the patellar tendon and patella was excised the poly insert was removed examination revealed there to be evidence of marked laxity in both extension flexion mid flexion subsequently the poly was upsized to a size 13 gave excellent stability in all range of motion including flexion mid flexion and extension wound was irrigated copious muscle sterile saline solution meticulous hemostasis was obtained to maintain a Betadine soak was performed subsequently joint mix was placed the wound was irrigated once again the poly was placed medial parapatellar incision closed #1 Vicryl subcu was closed with 2-0 Vicryl skin was closed with running subcuticular suture a sterile compressive dressings placed patient taken recovery room in stable conditionDue to the complex nature of the procedure, the entire surgery was performed with the operational assistance of JULIAN Bustos]. The diver assistant, under direct supervision, was involved in the actual performance of all aspects of the surgical procedure including hemostasis, tissue retraction and incision, instrument management, patient positioning, and wound closure. I attest to the content of the Intraoperative Record and any orders documented therein. Any exceptions are noted below.
--- NOTE | 2022-10-17 15:10 | Anesthesiology Progress Note ---
Date of Service October 17, 2022 Anesthesia Post Procedure Vital Signs Vital Signs: Temp Pulse Pulse Resp BP Pulse Ox O2 Del Method 10/17/22 15:05 63 18 134/74 99 Room Air 10/17/22 14:55 54 L 14 139/70 100 Oxymask 10/17/22 14:45 78 15 120/69 99 Oxymask 10/17/22 14:38 36.4 C L 83 16 116/70 99 Oxymask 10/17/22 09:17 36.8 C 65 20 162/89 H 100 Room Air O2 Flow Rate 10/17/22 15:05 10/17/22 14:55 4 10/17/22 14:45 8 10/17/22 14:38 8 10/17/22 09:17 Transfer of Care Handoff Completed per policy Notes Mental Status: alert / awake / arousable and participated in evaluation Patient Amnestic to Procedure: Yes Nausea / Vomiting: adequately controlled Pain: adequately controlled Airway Patency, RR, SpO2: stable & adequate BP & HR: stable & adequate Hydration State: stable & adequate Anesthetic Complications: no major complications apparent
[2022-10-17] MEDS ORDERED: oxyCODONE HCL IR 5 MG TAB (IMMEDIATE RELEASE) PO PRN (15:31)
[2022-10-17] MEDS ORDERED: bisacodyL 10 MG SUPP PR PRN (15:31)
[2022-10-17] MEDS ORDERED: MAGNESIUM HYDROXIDE SUSP 30 ML UDC PO PRN (15:31)
[2022-10-17] MEDS ORDERED: NALOXONE HCL 0.4 MG/1 ML VIAL/CARP IV PRN (15:31)
[2022-10-17] MEDS ORDERED: diphenhydrAMINE Capsule 25 MG CAP PO PRN (15:31)
[2022-10-17] MEDS ORDERED: HYDROmorphone INJ 1 MG/ML SYRINGE IV PRN (15:31)
[2022-10-17] MEDS ORDERED: METOCLOPRAMIDE HCL INJ 5 MG/ML 2 ML VIAL IV PRN (15:31)
[2022-10-17] MEDS: SODIUM CHLORIDE 0.9% 1000ML 1,000 ML IV SCH (16:11)
[2022-10-17] MEDS: KETOROLAC TROMETHAMINE 15 MG/ML VIAL IV SCH ×2 (16:13→21:03)
--- NOTE | 2022-10-17 16:36 | XRay Report ---
XR knee RT 1 or 2V routine CLINICAL HISTORY: Postoperative evaluation. COMPARISON: Right knee radiographs January 20, 2013. FINDINGS: Intramedullary keenan within the right femur is partially imaged. There are distal screws. He aled distal diaphyseal fracture of the right femur is noted. Right knee arthroplasty is noted. The clemens rdware is intact. There is no periprosthetic fracture. There are no unexpected radiopaque foreign bod ies. Ossific/calcific density along the medial femoral condyle is chronic. Soft tissue gas is postsur gical. IMPRESSION: Intact right knee arthroplasty. No periprosthetic fracture. No unexpected radiopaque foreign bodies. ACT 112: Negative or not required by law. Electronically signed by: Dayne Bacon M.D. 10/17/2022 4:34 PM
[2022-10-17] MEDS ORDERED: SENNA 8.6 MG TAB PO SCH (21:00)
[2022-10-17] MEDS: ceFAZolin 2000MG 2,000 MG/15 ML SYR IV SCH (21:03)
[2022-10-17] MEDS: CeleBREX 200 MG CAP PO SCH (21:05)
[2022-10-17] MEDS: ASPIRIN 81 MG ECTAB PO SCH (21:06)
[2022-10-17] MEDS: DOCUSATE SODIUM 100 MG CAP PO SCH (21:06)
[2022-10-18] MEDS: SODIUM CHLORIDE 0.9% 1000ML 1,000 ML IV SCH (01:50)
[2022-10-18] MEDS: KETOROLAC TROMETHAMINE 15 MG/ML VIAL IV SCH ×2 (03:05→08:14)
[2022-10-18] MEDS: ceFAZolin 2000MG 2,000 MG/15 ML SYR IV SCH (04:25)
[2022-10-18 06:53] LABS: Hematocrit (blood only) 34.4 % (37.0-47.0); Hemoglobin 11.3 g/dl (12.0-16.0); Mean Corpuscular Hemoglobin 29.7 pg (25.0-34.0); Mean Corpuscular Hgb Conc 32.8 g/dL (32.0-36.0); Mean Corpuscular Volume 90.3 fL (80.0-100.0); Mean Platelet Volume 9.7 fL (9.4-12.4); Platelet Count 277 K/uL (130-400); RDW Coefficient of Variation 12.7 % (11.5-14.5); RDW Standard Deviation 42.2 fL (36.4-46.3); Red Blood Count 3.81 M/uL (4.20-5.40); White Blood Count 13.21 K/ul (4.8-10.8)
[2022-10-18 07:13] LABS: BUN Creatinine Ratio 22.2 (10-20); Calcium 8.1 mg/dl (8.5-10.1); Est GFR (African American) 103.3 ml/min; Est GFR (Non-African American) 89.1 ml/min
[2022-10-18] MEDS: ASPIRIN 81 MG ECTAB PO SCH (08:14)
[2022-10-18] MEDS: CeleBREX 200 MG CAP PO SCH (08:14)
[2022-10-18] MEDS: DOCUSATE SODIUM 100 MG CAP PO SCH (08:14)
[2022-10-18] MEDS ORDERED: CHOLECALCIFEROL 1,000 UNITS 25 MCG TAB PO SCH (09:00)
[2022-10-18] MEDS ORDERED: MULTIVITAMIN TAB PO SCH (09:00)
[2022-10-18] MEDS ORDERED: LIOTHYRONINE SODIUM 25 MCG TAB PO SCH (09:00)
--- NOTE | 2022-10-18 09:30 | Orthopedic Progress Note ---
Date of Service October 18, 2022 Assessment & Plan (1) Polyethylene wear of right knee prosthesis: Plan: Pt is POD#1 s/p Rigt knee poly exchange -PT/OT -Pain regime as written -DVT ppx with TEDS/SCDS/ASA BID -Pt is stable from an orthopedic standpoint to be discharged today. Admission and Anticipated Discharge Date Admission Date: October 17, 2022 Subjective Pt is POD#1 s/p Rigt knee poly exchange -Pt doing well this morning, sitting in bed eating breakfast during time of exam. -States pain is well controlled at this time, feels well and states she is ready to go home -Denies CP, SOB, abdominal pain, fevers or chills Review of Systems Review of Systems: All systems reviewed & are unremarkable except as noted in Subjective Physical Exam Physical Exam: RLE with dressing in place and is c/d/i. Calf is soft and nontender and negative peri sign. Able to wiggle toes without issue, full ROM of R ankle, and distal perfusion and sensation grossly intact. Results & Data Vital Signs (Past 12 Hours) Vital Signs Temp Pulse Resp BP Pulse Ox O2 Del Method 10/18/22 08:20 36.7 C 60 18 151/84 H 97 Room Air 10/18/22 04:17 36.8 C 68 18 144/68 H 96 Room Air Laboratory Results Laboratory Results WBC 13.21 K/ul (4.8-10.8) H 10/18/22 06:11 RBC 3.81 M/uL (4.20-5.40) L 10/18/22 06:11 Hgb 11.3 g/dl (12.0-16.0) L 10/18/22 06:11 Hct 34.4 % (37.0-47.0) L 10/18/22 06:11 MCV 90.3 fL (80.0-100.0) 10/18/22 06:11 MCH 29.7 pg (25.0-34.0) 10/18/22 06:11 MCHC 32.8 g/dL (32.0-36.0) 10/18/22 06:11 RDW Std Deviation 42.2 fL (36.4-46.3) 10/18/22 06:11 RDW Coeff of Daryl 12.7 % (11.5-14.5) 10/18/22 06:11 Plt Count 277 K/uL (130-400) 10/18/22 06:11 MPV 9.7 fL (9.4-12.4) 10/18/22 06:11 Sodium 141 mmol/L (136-145) 10/18/22 06:11 Potassium 4.0 mmol/L (3.5-5.1) 10/18/22 06:11 Chloride 111 mmol/L (98-107) H 10/18/22 06:11 Carbon Dioxide 26 mmol/L (21-32) 10/18/22 06:11 Anion Gap 4 (3-11) 10/18/22 06:11 BUN 16 mg/dl (6-23) 10/18/22 06:11 Creatinine 0.72 mg/dl (0.6-1.2) 10/18/22 06:11 Est Cr Clr Drug Dosing 77.0 ml/min 10/18/22 06:11 Est GFR ( Amer) 103.3 ml/min 10/18/22 06:11 Est GFR (Non-Af Amer) 89.1 ml/min 10/18/22 06:11 BUN/Creatinine Ratio 22.2 (10-20) H 10/18/22 06:11 Glucose 103 mg/dl (70-99(Fasting)) H 10/18/22 06:11 Calcium 8.1 mg/dl (8.5-10.1) L 10/18/22 06:11 SARS-CoV-2, RNA, NAAT NEGATIVE (NEGATIVE) 10/17/22 Unknown Impressions Knee X-Ray 10/17/22 14:44 XR knee RT 1 or 2V routine CLINICAL HISTORY: Postoperative evaluation. COMPARISON: Right knee radiographs January 20, 2013. FINDINGS: Intramedullary keenan within the right femur is partially imaged. There are distal screws. Healed distal diaphyseal fracture of the right femur is noted. Right knee arthroplasty is noted. The hardware is intact. There is no periprosthetic fracture. There are no unexpected radiopaque foreign bodies. Ossific/calcific density along the medial femoral condyle is chronic. Soft tissue gas is postsurgical. IMPRESSION: Intact right knee arthroplasty. No periprosthetic fracture. No unexpected radiopaque foreign bodies. ACT 112: Negative or not required by law. Electronically signed by: Dayne Bacon M.D. 10/17/2022 4:34 PM
--- NOTE | 2022-10-19 07:55 | Discharge Summary ---
Date of Service date of discharge: October 18, 2022 date of admission: 10/17/22 Admission HPI Per Admitting Provider Drea is a pleasant 62-year-old female who presented for preop evaluation prior to right knee poly exchange. 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 Initially she did well after the manipulation but then began having pain. She did have a bone scan done a couple of years ago which did not show any signs of loosening or infection. On examination she does have some knee flexion laxity noted. After discussion with Dr. Moreland, she like to proceed with surgical invention. 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 DP palpable, able to wiggle toes/ankle movement without difficulty. HEIDE dressing clean dry and intact. expected post-operative bruising noted. Discharge Data Allergies Allergy/AdvReac Type Severity Reaction Status Date / Time aspirin AdvReac Intermediate Stomach Verified 10/17/22 09:15 irritation acetaminophen [From Percocet] AdvReac Unknown Loss of Verified 10/17/22 09:15 appetite, crying Procedures Performed Operation Date: 10/17/22 11:55 Actual Procedures p Right Knee Poly Exchange(Right) - Salbador Moreland DO Ordered Studies 10/17/22 05:00 US - OR guided needle placemen Routine Hospital Course (1) Polyethylene wear of right knee prosthesis: Pt is POD#1 s/p Rigt knee poly exchange -PT/OT -Pain regime as written -DVT ppx with TEDS/SCDS/ASA BID -Pt is stable from an orthopedic standpoint to be discharged today. Total Time Total Time Spent Total Time Spent (In Minutes): 20 Discharge Plan Discharge Items Patient Disposition: Home - Self-Care Reason For Visit: post op Discharge Diagnosis: right knee poly exchange Activity: Per Instructions section Weightbearing Comment: WBAT with walker Non-emergency contact: Surgeon Call non-emergency contact if: you have any medication questions, your temperature is above 101, your wound has increased redness, your wound has increased drainage and your wound pain has increased Follow-up/Referrals: Salbador Moreland DO [Surgeon] - (f/u in [address] Moreland or his JULIAN Mitchell for your post-operative check up) Martina Beck DO [Primary Care Provider] - Diet: Regular Addtl Attending Provider Instructions: ACTIVITY RECOMMENDATIONS: SELF CARE INSTRUCTIONS AFTER POLY EXCHANGE A. You may need to continue a physical therapy program after discharge from the hospital. There are several options available to you. Your doctor will assist you in selecting the best one for you. 1. An out-patient facility 2 to 3 times a week for therapy or home therapy. 2. Continue working on all exercises taught to you in the hospital. Your goals should be to increase bending of your knee to 90 degrees and beyond and to fully straighten your knee. B. You may progress at your own pace from walking with a walker or crutches to a cane; then to no assistive devices. C. Make walking a part of your daily routine. Be up as much as comfortable with rest periods throughout the day. Rest with leg elevation is very important. Use the ice wrap frequently for the first 3-4 weeks. D. There are no restrictions on activities. You may ride in a car, shop, participate in pan shaker and all social activities. E. Wear the long elastic stockings (NARAYAN hose) 20 hours a day for 2 weeks after surgery. They can be removed several times a day for laundering and for a bath. F. You may shower, no tub baths until cleared by your doctor. SPECIAL CARE INSTRUCTIONS: VERY IMPORTANT TO READ AND REVIEW A. There are a few signs you need to watch for after you are home. Call [facility] if you notice any of the followin. Increased severe knee pain. Some pain is expected especially when you exercise. 2. Increased swelling in your leg or knee; pain or swelling of the calf muscle in either lower leg. 3. Any fluid drainage from the incision. 4. Shortness of breath or chest pain. B. Please call [facility] at if you have any concerns or questions about your operation or recovery. The doctor or his nurse will return your call promptly. C. You must take antibiotics before dental work, bladder, bowel or other surgery. Your doctor will provide you with a permanent care to carry describing this precaution. IMPORTANT: * REMEMBER TO TAKE ASPIRIN, 81 MG, TWICE DAILY FOR 4 WEEKS UNLESS OTHERWISE DIRECTED. THIS IS YOUR BLOOD THINNER. * HIGH RISK PATIENTS MAY BE PRESCRIBED A STRONGER BLOOD THINNER. THIS WILL BE PROVIDED AT DISCHARGE. * CALL IF INCREASED PAIN, REDNESS, DRAINAGE OR FEVER GREATER THAT 101. * WEAR NARAYAN HOSE 20 HOURS PER DAY FOR 2 WEEKS. * DRESSING INSTRUCTIONS * HEIDE Dressing- This is a large suction dressing covering your incision. This will help pull any excess drainage from the wound and allow your incision to heal properly. You may shower with this if you can keep the unit outside of the shower. If any bleeding or leakage is noted please call your doctor's office. This will remain on your incision for 7 days and then should be removed. This can be done yourself or by the home nursing staff if applicable. The entire unit is disposable once removed. Once removed, keep incision clean and dry. If redness or drainage is noted, please call your surgeon. ONCE HEIDE IS REMOVED, FOLLOW THESE INSTRUCTIONS: DERMABOND Prineo- This is a mesh tape dressing that is covered with glue. It should remain in place until the incision is properly healed, usually 10-14 days. This dressing is designed to naturally slough off. You may trim the excess mesh tape as it peels off. Incision may be briefly wet in a shower. Dry immediately by blotting with a clean, dry towel. Do not bath or swim until instructed by your doctor. Do not scratch, rub, or pick at the dressing. Do not apply any topical ointments or lotions until dressing is completely removed and/or instructed by your doctor. There may be a small piece of suture material at one end of your incision. Do not pull or trim this. If it is bothersome or catching on clothing, you may cover it with a band-aid. IF INCISION IS LEAKING THROUGH DRESSING, CALL THE OFFICE . FOLLOW UP VISIT: If appointment is not already scheduled: Please call [facility] to make a follow-up appointment for 2 weeks after your surgery at . Pending Studies at Discharge: No Stand-Alone Forms: My [employer], Smoking Cessation Medications and DC Order Prescriptions: New acetaminophen 500 mg capsule 1,000 mg PO Q8H 14 Days Qty: 84 0RF cefadroxil 500 mg capsule 500 mg PO BID 14 Days Qty: 28 0RF celecoxib [Celebrex] 200 mg capsule 200 mg PO BID PRN (Reason: pain) 30 Days Qty: 60 0RF aspirin [Ecotrin Low Strength] 81 mg tablet,delayed release (DR/EC) 81 mg PO BID 30 Days Qty: 60 0RF oxycodone 5 mg tablet 5 mg PO Q4H MDD 6 PRN (Reason: pain) Qty: 30 0RF Continued liothyronine 25 mcg Tablet 25 mcg PO QAM cholecalciferol (vitamin D3) [Vitamin D3] 1,000 unit Tablet 500 unit PO QAM Discharge Orders: Discharge Order (Routine); Ordered 10/18/22 Ordered By: Mark Renteria Admission Data Admit Date/Time: 10/17/22 14:44 Attending Provider: Salbador Moreland Admit Provider: Salbador Moreland Primary Care Provider: Martina Beck Other Interventions: Discharge Summary Assessment (RN) Last Done: 10/18/22 12:14
== END 2022-10-18 13:00 | disposition home or self-care (01) ==
LOC: 3E 08:47 → ASU 08:47